=== PATIENT | male | born 1960 | race Caucasian/White ===

== ENCOUNTER 2019-07-22 07:12 | Emergency (ER) | payer MEDICAID ==
--- NOTE | 2019-07-22 07:28 | EDM.PDOC ---
ED HPI GENERAL MEDICAL PROBLEM - General Chief Complaint: Skin Complaint Stated Complaint: HIVES Time Seen by Provider: 07/22/19 07:15 Source of Information: Reports: Patient History Limitations: Reports: No Limitations - History of Present Illness INITIAL COMMENTS - FREE TEXT/NARRATIVE: pt comes in with concerns for itchy hives through out his body x 2 days, denies cough wheezing or any other associated sx or concerns. denies any new meds or any identifiable environmental triggers or Hx of similar problems. - Related Data Allergies Allergy/AdvReac Type Severity Reaction Status Date / Time No Known Allergies Allergy Verified 06/14/19 14:02 ED ROS GENERAL - Review of Systems Review Of Systems: See Below Constitutional: Reports: Fatigue. Denies: Fever, Chills HEENT: Reports: No Symptoms Respiratory: Reports: No Symptoms. Denies: Wheezing, Cough Cardiovascular: Reports: No Symptoms GI/Abdominal: Reports: No Symptoms. Denies: Abdominal Pain Musculoskeletal: Reports: No Symptoms Skin: Reports: Pruritis, Rash Neurological: Reports: No Symptoms Psychiatric: Reports: No Symptoms ED EXAM, SKIN/RASH Exam: See Below Exam Limited By: No Limitations General Appearance: Alert, No Apparent Distress Ears: Normal External Exam Nose: Normal Inspection Throat/Mouth: Normal Inspection Head: Atraumatic Neck: Normal Inspection Respiratory/Chest: No Respiratory Distress, Lungs Clear, Normal Breath Sounds Cardiovascular: Normal Peripheral Pulses GI/Abdominal: Normal Bowel Sounds, Soft, Non-Tender Extremities: Normal Inspection, Normal Range of Motion Neurological: Alert, Oriented, CN II-XII Intact Psychiatric: Normal Affect, Normal Mood Skin: Warm, Rash, Other (pt has scattered hives mostly over the trunk and some over extremities. ) Location, Skin: Abdomen, Back, Upper Extremity, Right, Upper Extremity, Left, Lower Extremity, Right, Lower Extremity, Left Associated features: No: Warmth, Tenderness, Swelling, Induration, Scaling, Lymphangitis, Crusting, Weeping Course - Vital Signs Text/Narrative:: pt has an allergic reaction to unidentifiable source. was given solumedrol here and medrol pack, pt to use over the counter benadryl 50 mg every 6 hrs if needed and follow on this issue with PCP if no improvement Departure - Departure Time of Disposition: 07:29 Disposition: Home, Self-Care 01 Clinical Impression: Allergic reaction - Discharge Information Referrals: Jammie Gagnon NP [Primary Care Provider] - - Problem List & Annotations (1) Allergic reaction SNOMED Code(s): 017748899 Code(s): T78.40XA - ALLERGY, UNSPECIFIED, INITIAL ENCOUNTER Status: Acute Qualifiers: Encounter type: initial encounter Qualified Code(s): T78.40XA - Allergy, unspecified, initial encounter
[2019-07-22] MEDS ORDERED: methylPREDNISolone Sodium Succinate 125 MG/2 ML SDV IM ONE (07:29)
== END 2019-07-22 07:47 | disposition home or self-care (01) ==
LOC: FB.ED 07:12
DX: L50.0 Allergic urticaria (principal)
CPT/HCPCS: 96372; 99282; J2930

== ENCOUNTER 2019-07-26 06:36 | Emergency (ER) | payer MEDICAID ==
[2019-07-26] MEDS ORDERED: Ketorolac 60 MG/2 ML SDV IM ONE (07:22)
[2019-07-26] MEDS ORDERED: Acetaminophen/oxyCODONE 325-5 MG Tab PO ONE (07:22)
--- NOTE | 2019-07-26 07:51 | ER ---
DATE SEEN: 07/26/2019 REASON FOR VISIT: Joint pain. HISTORY OF PRESENT ILLNESS: This is a 59-year-old male with joint pain that started yesterday. It is generalized, shoulder, elbow, knees and hips along with small joints of the hand. He has noted swelling of the joints of the small hand and stiffness. He in addition also complains of body aches and headache. He denies fever, but had chills overnight and was unable to sleep well. PAST MEDICAL HISTORY: [facility] and apparently has a form of chronic liver disease, history of alcohol abuse and he has been referred for an upper and lower GI studies with the software development intern in [place]. ALLERGIES: None. MEDICATIONS: 1. Wellbutrin. 2. Omeprazole. PHYSICAL EXAMINATION: VITAL SIGNS: Blood pressure is normal. He is afebrile. ENT: Negative. HEAD: Atraumatic. NECK: Supple. CHEST: Clear. CARDIOVASCULAR: Normal. ABDOMEN: Soft, mildly distended and nontender. EXTREMITIES: He has mild synovitis noted to the right hand small joints and diminished range of motion on the major joints. SKIN: No pallor, jaundice or rash noted. IMPRESSION: Polyarthritis. PLAN: I will obtain a CMP, CBC, CRP, ESR, rheumatoid factor and DANICA were ordered. I will allow Dr. Mcneal to continue care this morning to determine the source of his symptoms and treatment thereof. /[id number] ALEKSANDRA/MANJULA
--- NOTE | 2019-07-26 08:07 | EDM.PDOC ---
ED HPI GENERAL MEDICAL PROBLEM - General Chief Complaint: General Stated Complaint: JOINT PAIN all over joints Pain Score (Numeric/FACES): 7 - Related Data Allergies Allergy/AdvReac Type Severity Reaction Status Date / Time No Known Allergies Allergy Verified 07/26/19 07:38 Home Meds: Home Meds Omeprazole 40 mg PO DAILY 07/22/19 [History] buPROPion [buPROPion XL] 150 mg PO DAILY 07/22/19 [History] Past Medical History Gastrointestinal History: Reports: Cirrhosis, GERD Psychiatric History: Reports: Depression Social & Family History - Tobacco Use Smoking Status *Q: Current Every Day Smoker Years of Tobacco use: 45 Packs/Tins Daily: 0.5 Course - Vital Signs Last Recorded V/S: Last Vital Signs Temp 36.5 C 07/26/19 07:30 Pulse 86 07/26/19 07:30 Resp 20 07/26/19 07:30 BP 140/87 07/26/19 07:30 Pulse Ox 97 07/26/19 07:30 - Orders/Labs/Meds Orders: Active Orders 24 hr Category Date Time Status DANICA W/REFLEX Stat Lab 07/26/19 06:56 Received LYME, TOTAL AB TEST/REFLEX Stat Lab 07/26/19 06:56 Received RHEUMATOID ARTHRITIS FACTOR Stat Lab 07/26/19 06:56 Received Labs: Laboratory Tests 07/26/19 07/26/19 07/26/19 Range/Units 06:56 06:56 06:56 WBC 8.7 (4.5-12.0) X10-3/uL RBC 4.60 (4.30-5.75) x10(6)uL Hgb 15.1 (13.5-17.8) g/dL Hct 42.9 (30.0-51.3) % MCV 93.3 (80-96) fL MCH 32.8 (27.7-33.6) pg MCHC 35.2 (32.2-35.4) g/dL RDW 13.5 (11.5-15.5) % Plt Count 149 (125-369) X10(3)uL MPV 7.2 L (7.4-10.4) fL Neut % (Auto) 77.3 (46-82) % Lymph % (Auto) 11.6 L (13-37) % [place] % (Auto) 9.1 (4-12) % Eos % (Auto) 1 (1.0-5.0) % Baso % (Auto) 1 (0-2) % Neut # (Auto) 6.7 (1.6-8.3) # Lymph # (Auto) 1.0 (0.6-5.0) # [place] # (Auto) 0.8 (0.0-1.3) # Eos # (Auto) 0.1 (0.0-0.8) # Baso # (Auto) 0.1 (0.0-0.2) # ESR (0-15) mm/hr Sodium 135 (135-145) mmol/L Potassium 4.5 (3.5-5.3) mmol/L Chloride 98 L D (100-110) mmol/L Carbon Dioxide 28 (21-32) mmol/L BUN 14 (7-18) mg/dL Creatinine 1.1 (0.70-1.30) mg/dL Est Cr Clr Drug Dosing 72.82 mL/min Estimated GFR (MDRD) > 60 (>60) BUN/Creatinine Ratio 12.7 (9-20) Glucose 176 H D (80-116) mg/dL Lactic Acid (0.4-2.2) mmol/L Uric Acid (2.6-6.0) mg/dL Calcium 8.9 (8.6-10.2) mg/dL Total Bilirubin 0.7 (0.1-1.3) mg/dL AST 28 H D (5-25) IU/L ALT 41 H (12-36) U/L Alkaline Phosphatase 85 (56-112) IU/L C-Reactive Protein 5.1 H* (0.5-0.9) mg/dL Total Protein 7.4 (6.0-8.0) g/dL Albumin 3.7 (3.2-4.6) g/dL Globulin 3.7 g/dL Albumin/Globulin Ratio 1.0 07/26/19 07/26/19 07/26/19 Range/Units 06:56 06:56 07:23 WBC (4.5-12.0) X10-3/uL RBC (4.30-5.75) x10(6)uL Hgb (13.5-17.8) g/dL Hct (30.0-51.3) % MCV (80-96) fL MCH (27.7-33.6) pg MCHC (32.2-35.4) g/dL RDW (11.5-15.5) % Plt Count (125-369) X10(3)uL MPV (7.4-10.4) fL Neut % (Auto) (46-82) % Lymph % (Auto) (13-37) % [place] % (Auto) (4-12) % Eos % (Auto) (1.0-5.0) % Baso % (Auto) (0-2) % Neut # (Auto) (1.6-8.3) # Lymph # (Auto) (0.6-5.0) # [place] # (Auto) (0.0-1.3) # Eos # (Auto) (0.0-0.8) # Baso # (Auto) (0.0-0.2) # ESR 6 (0-15) mm/hr Sodium (135-145) mmol/L Potassium (3.5-5.3) mmol/L Chloride (100-110) mmol/L Carbon Dioxide (21-32) mmol/L BUN (7-18) mg/dL Creatinine (0.70-1.30) mg/dL Est Cr Clr Drug Dosing mL/min Estimated GFR (MDRD) (>60) BUN/Creatinine Ratio (9-20) Glucose (80-116) mg/dL Lactic Acid 1.2 (0.4-2.2) mmol/L Uric Acid 3.9 (2.6-6.0) mg/dL Calcium (8.6-10.2) mg/dL Total Bilirubin (0.1-1.3) mg/dL AST (5-25) IU/L ALT (12-36) U/L Alkaline Phosphatase (56-112) IU/L C-Reactive Protein (0.5-0.9) mg/dL Total Protein (6.0-8.0) g/dL Albumin (3.2-4.6) g/dL Globulin g/dL Albumin/Globulin Ratio Meds: Medications Discontinued Medications Generic Name Dose Route Start Last Admin Trade Name Freq PRN Reason Stop Dose Admin Ketorolac Tromethamine 60 mg 07/26/19 07:22 07/26/19 07:30 Toradol IM 07/26/19 07:23 60 mg ONETIME ONE Administration Oxycodone/Acetaminophen 2 tab 07/26/19 07:22 07/26/19 07:30 Percocet 325-5 Mg PO 07/26/19 07:23 2 tab ONETIME ONE Administration Departure - Departure Time of Disposition: 08:30 Disposition: Home, Self-Care 01 Clinical Impression: Arthritis pain - Discharge Information Referrals: Jammie Gagnon NP [Primary Care Provider] -
--- NOTE | 2019-07-26 08:53 | EDM.PDOC ---
ED HPI GENERAL MEDICAL PROBLEM - General Chief Complaint: General Stated Complaint: JOINT PAIN Time Seen by Provider: 07/26/19 07:30 - History of Present Illness INITIAL COMMENTS - FREE TEXT/NARRATIVE: Patient is a 59 YO WM who presented to the ED because of multiple joint pains which started 5 days ago and got worse yesterday. The pain is sharp 10/10,sharp pain over the left shoulder,wrist-bilateral,hands-bilateral with associated morning stiffness. He denies any fever but c/o headache which is mild. He was seen in the ED 5 days ago and was prescribed methylprednisolone which he didn't fill because steroids makes him anxious and awake at night. all over joints Pain Score (Numeric/FACES): 7 - Related Data Allergies Allergy/AdvReac Type Severity Reaction Status Date / Time No Known Allergies Allergy Verified 07/26/19 07:38 Home Meds: Home Meds Omeprazole 40 mg PO DAILY 07/22/19 [History] buPROPion [buPROPion XL] 150 mg PO DAILY 07/22/19 [History] traMADol [Ultram] 100 mg PO Q8H PRN #30 tab 07/26/19 [Rx] Past Medical History Gastrointestinal History: Reports: Cirrhosis, GERD Psychiatric History: Reports: Depression Social & Family History - Tobacco Use Smoking Status *Q: Current Every Day Smoker Years of Tobacco use: 45 Packs/Tins Daily: 0.5 ED ROS GENERAL - Review of Systems Review Of Systems: See Below Constitutional: Reports: No Symptoms HEENT: Reports: No Symptoms Respiratory: Reports: No Symptoms Cardiovascular: Reports: No Symptoms Endocrine: Reports: No Symptoms GI/Abdominal: Reports: No Symptoms Musculoskeletal: Reports: Shoulder Pain, Other (wrist and hand pain) Skin: Reports: No Symptoms Neurological: Reports: No Symptoms ED EXAM, GENERAL - Physical Exam Exam: See Below Exam Limited By: No Limitations General Appearance: Alert, No Apparent Distress Ears: Normal [place] Nose: Normal Inspection, Normal Mucosa, No Blood Throat/Mouth: Normal Inspection Head: Atraumatic, Normocephalic Neck: Normal Inspection, Supple, Non-Tender Respiratory/Chest: No Respiratory Distress, Lungs Clear, Normal Breath Sounds, No Accessory Muscle Use, Chest Non-Tender Cardiovascular: Normal Peripheral Pulses, Regular Rate, Rhythm, No Edema, No JVD , No Murmur, No Rub GI/Abdominal: Normal Bowel Sounds, Non-Tender, No Organomegaly, No Distention Extremities: Normal Inspection, Joint Swelling, Other (tenderness over the left shoulder,wrist-bilateral,fingers) Course - Vital Signs Text/Narrative:: labs reviewed and discussed with patient CRP-elevated Toradol 60 mg IM x1 percocet 5mg,2 po x1 dose His pain was tolerable upon discharge. Last Recorded V/S: Last Vital Signs Temp 36.5 C 07/26/19 07:30 Pulse 86 07/26/19 07:30 Resp 20 07/26/19 07:30 BP 140/87 07/26/19 07:30 Pulse Ox 97 07/26/19 07:30 - Orders/Labs/Meds Orders: Active Orders 24 hr Category Date Time Status DANICA W/REFLEX Stat Lab 07/26/19 06:56 Received LYME, TOTAL AB TEST/REFLEX Stat Lab 07/26/19 06:56 Received RHEUMATOID ARTHRITIS FACTOR Stat Lab 07/26/19 06:56 Received Labs: Laboratory Tests 07/26/19 07/26/19 07/26/19 Range/Units 06:56 06:56 06:56 WBC 8.7 (4.5-12.0) X10-3/uL RBC 4.60 (4.30-5.75) x10(6)uL Hgb 15.1 (13.5-17.8) g/dL Hct 42.9 (30.0-51.3) % MCV 93.3 (80-96) fL MCH 32.8 (27.7-33.6) pg MCHC 35.2 (32.2-35.4) g/dL RDW 13.5 (11.5-15.5) % Plt Count 149 (125-369) X10(3)uL MPV 7.2 L (7.4-10.4) fL Neut % (Auto) 77.3 (46-82) % Lymph % (Auto) 11.6 L (13-37) % [place] % (Auto) 9.1 (4-12) % Eos % (Auto) 1 (1.0-5.0) % Baso % (Auto) 1 (0-2) % Neut # (Auto) 6.7 (1.6-8.3) # Lymph # (Auto) 1.0 (0.6-5.0) # [place] # (Auto) 0.8 (0.0-1.3) # Eos # (Auto) 0.1 (0.0-0.8) # Baso # (Auto) 0.1 (0.0-0.2) # ESR (0-15) mm/hr Sodium 135 (135-145) mmol/L Potassium 4.5 (3.5-5.3) mmol/L Chloride 98 L D (100-110) mmol/L Carbon Dioxide 28 (21-32) mmol/L BUN 14 (7-18) mg/dL Creatinine 1.1 (0.70-1.30) mg/dL Est Cr Clr Drug Dosing 72.82 mL/min Estimated GFR (MDRD) > 60 (>60) BUN/Creatinine Ratio 12.7 (9-20) Glucose 176 H D (80-116) mg/dL Lactic Acid (0.4-2.2) mmol/L Uric Acid (2.6-6.0) mg/dL Calcium 8.9 (8.6-10.2) mg/dL Total Bilirubin 0.7 (0.1-1.3) mg/dL AST 28 H D (5-25) IU/L ALT 41 H (12-36) U/L Alkaline Phosphatase 85 (56-112) IU/L C-Reactive Protein 5.1 H* (0.5-0.9) mg/dL Total Protein 7.4 (6.0-8.0) g/dL Albumin 3.7 (3.2-4.6) g/dL Globulin 3.7 g/dL Albumin/Globulin Ratio 1.0 07/26/19 07/26/19 07/26/19 Range/Units 06:56 06:56 07:23 WBC (4.5-12.0) X10-3/uL RBC (4.30-5.75) x10(6)uL Hgb (13.5-17.8) g/dL Hct (30.0-51.3) % MCV (80-96) fL MCH (27.7-33.6) pg MCHC (32.2-35.4) g/dL RDW (11.5-15.5) % Plt Count (125-369) X10(3)uL MPV (7.4-10.4) fL Neut % (Auto) (46-82) % Lymph % (Auto) (13-37) % [place] % (Auto) (4-12) % Eos % (Auto) (1.0-5.0) % Baso % (Auto) (0-2) % Neut # (Auto) (1.6-8.3) # Lymph # (Auto) (0.6-5.0) # [place] # (Auto) (0.0-1.3) # Eos # (Auto) (0.0-0.8) # Baso # (Auto) (0.0-0.2) # ESR 6 (0-15) mm/hr Sodium (135-145) mmol/L Potassium (3.5-5.3) mmol/L Chloride (100-110) mmol/L Carbon Dioxide (21-32) mmol/L BUN (7-18) mg/dL Creatinine (0.70-1.30) mg/dL Est Cr Clr Drug Dosing mL/min Estimated GFR (MDRD) (>60) BUN/Creatinine Ratio (9-20) Glucose (80-116) mg/dL Lactic Acid 1.2 (0.4-2.2) mmol/L Uric Acid 3.9 (2.6-6.0) mg/dL Calcium (8.6-10.2) mg/dL Total Bilirubin (0.1-1.3) mg/dL AST (5-25) IU/L ALT (12-36) U/L Alkaline Phosphatase (56-112) IU/L C-Reactive Protein (0.5-0.9) mg/dL Total Protein (6.0-8.0) g/dL Albumin (3.2-4.6) g/dL Globulin g/dL Albumin/Globulin Ratio Meds: Medications Discontinued Medications Generic Name Dose Route Start Last Admin Trade Name Freq PRN Reason Stop Dose Admin Ketorolac Tromethamine 60 mg 07/26/19 07:22 07/26/19 07:30 Toradol IM 07/26/19 07:23 60 mg ONETIME ONE Administration Oxycodone/Acetaminophen 2 tab 07/26/19 07:22 07/26/19 07:30 Percocet 325-5 Mg PO 07/26/19 07:23 2 tab ONETIME ONE Administration Departure - Departure Time of Disposition: 08:30 Disposition: Home, Self-Care 01 Clinical Impression: Arthritis pain - Discharge Information Prescriptions: traMADol [Ultram] 100 mg PO Q8H PRN #30 tab PRN Reason: Pain Instructions: Arthritis, [id number], Osteoarthritis Referrals: Jammie Gagnon NP [Primary Care Provider] - Forms: ED Department Discharge Additional Instructions: Please read discharge instructions on arthritis take tramadol 100 mg with tylenol 1000 mg every 8 hours as needed for pain Don't take more than 3 grams of tylenol in a 24 hour period Follow up if symptoms persist or worsens
[2019-07-31 12:08] LABS: LYME IGG/IGM AB <0.91 ISR (0.00-0.90)
== END 2019-07-26 08:45 | disposition home or self-care (01) ==
LOC: FB.ED 06:36
DX: M19.90 Unspecified osteoarthritis, unspecified site (principal); M25.512 Pain in left shoulder; M25.531 Pain in right wrist; M25.532 Pain in left wrist; M79.645 Pain in left finger(s); M79.644 Pain in right finger(s); K21.9 Gastro-esophageal reflux disease without esophagitis; F32.9 Major depressive disorder, single episode, unspecified; F17.210 Nicotine dependence, cigarettes, uncomplicated; Z79.899 Other long term (current) drug therapy
CPT/HCPCS: 36415; 80053; 83605; 84550; 85025; 85651; 86140; 86431; 96372; 99283; A9270; J1885; 86618

== ENCOUNTER 2019-10-30 11:01 | Day surgery (SDC) | payer MEDICAID, OTHER, SELFPAY ==
[2019-10-30] MEDS ORDERED: Bupivacaine 0.5% 10 ML SDV INJECT ONE (11:02)
[2019-10-30] MEDS ORDERED: methylPREDNISolone Acetate 80 MG/ML SDV IM ONE (11:02)
--- NOTE | 2019-10-31 09:36 | ANES ---
DATE OF PROCEDURE: 10/30/2019 REFERRING PHYSICIAN: Jammie Gagnon CNP PROCEDURE PERFORMED: Epidural steroid injection at L4-L5. REFERRAL DIAGNOSIS: Lumbar radiculopathy. MRI RESULTS: Multilevel degenerative change in lumbar spine as above. No significant canal stenosis at any level or evidence of nerve impingement. Facet degeneration appears most pronounced at the L4-L5 level. The patient's back history; he has had back pain for several years. Today, he is rating his pain between 4 and 6, possibly even 7 at times. Some days it is at 10 where he cannot go to work because of the back pain. He has been treating his pain with Tylenol, but this does not seem to cover the pain. GENERAL ASSESSMENT: Today when assessing his back, the patient points to his right SI joint where he states most of his pain is, though when palpating L4-L5 , L3-L4, there is pain there. This pain can travel from his back to his right buttocks and than to his lateral thigh stopping at his knee. I explained to the patient different treatment options for his pain, and also noted that we can place epidural steroid to see if he gets relief, and if in the future he needs to have an SI injection on the right side, he could also have that done at [facility] in [place] or another pain center. All risks and benefits were discussed with the patient. The patient accepts the risks and the benefits. Informed consent was received. DESCRIPTION OF PROCEDURE: The patient was taken to the procedure room, placed in an upright position on the procedure bed. A time out was performed. After a Betadine swab x3 and a sterile drape was placed, a #17 gauge Tuohy was introduced at L4-L5 interspace times one pass until good loss of resistance, approximately at 8.5 cm. There was no paraesthesia. There was no CSF. There was no blood. At this point, Marcaine 0.25% preservative free 6 mL with Depo-Medrol 80 mg was injected into the epidural space. Needle was withdrawn. Back was washed off. Band-Aid applied. Had assistance in standing. Legs were strong. The patient stated, when standing, that his pain was down to 0 out of a 10. The patient was assitted back to his room.when visiting with patient 10 minutes later he stated he had good pain relief at this point. Advised the patient to come back with any increased pain or increased discomfort in his back or his legs. Offered to do future epidural steroid injections if this one helps and that we would be calling him in the next couple of days to check on him. He was also given a pain diary to track his pain and hopefuuly this can help assist in knowing how much relief he is actually getting from this injection. /[id number] ANUPAMA/MANJULA JOINER
== END 2019-10-30 12:12 | disposition home or self-care (01) ==
LOC: FB.SDS 11:01
PROVIDERS: ATTEND Nurse Practitioner Family
DX: M47.26 Other spondylosis with radiculopathy, lumbar region (principal)
CPT/HCPCS: 62322; J1040; J3490